=== PATIENT | male | born 1955 | race Caucasian/White ===

== ENCOUNTER 2017-01-28 12:28 | Outpatient (CLI) | payer MEDICARE ==
--- NOTE | 2017-01-28 15:38 | Diagnostic Imaging Report ---
Indication: Back pain Technique: MRI examination of the Lumbar spine was performed in a 1.5 [employer]alia magnet. Sequences obtained include sagittal and axial T1 and T2 fast spin echo, and sagittal STIR. No IV gadolinium was given Comparison: none Findings: Bone marrow signal and height and signal of the intervertebral discs are normal. The visualized part of the distal spinal cord is normal in appearance. The tip of the cord or conus medullaris is seen at T12. T12-L1: This level is unremarkable. L1-2: This level unremarkable. L2-3: Mild concentric disc bulge and mild hypertrophy facets demonstrated. In addition there is a small right-sided far lateral disc protrusion (for example image 9 of series 4). This encroaches on the anterior aspect of the neural foramen but does not result in any significant narrowing of the foramen or compression of the exiting L2 nerve root. L3-4: Mild to moderate facet hypertrophy demonstrated. There is no central lateral recess or neural foraminal stenosis. L4-5: Mild to moderate facet arthropathy demonstrated. L5-S1: Mild facet arthropathy demonstrated. No foraminal or central stenosis. Impression: Small far right lateral disc protrusion at L2-3. No associated neural impingement. Facet arthropathy as described above
== END 2017-01-28 14:28 | disposition home or self-care (01) ==
LOC: MRI 12:28
DX: M48.061 Spinal stenosis, lumbar region without neurogenic claudication (principal)
CPT/HCPCS: 72148